=== PATIENT | male | born 1960 | race Caucasian/White ===

== ENCOUNTER 2021-12-14 14:33 | Inpatient (IN) | payer SELFPAY ==
[2021-12-14 15:19] LABS: #Monocytes 0.6 10x3/uL (0.0-1.1); %Basophils 0.3 % (0.0-2.0); %Eosinophils 0.5 % (0.0-6.0); %Lymphocytes 22.3 % (18.0-47.0); %Monocytes 9.4 % (0.0-10.0); %Neutrophils 67.2 % (40.0-75.0); Mean Corpuscular HGB CONC 32.6 g/dL (32.0-36.0); Mean Corpuscular Hemoglobin 27.5 pg (27.0-33.0); Mean Corpuscular Volume 84.2 fl (81.2-95.1); Mean Platelet Volume 10.2 fl (7.4-10.4); Platelet Count 196 10x3/uL (150-450); RBC Distribution Width 14.8 % (11.5-14.5); Red Blood Cell (RBC) Count 4.37 10x6/uL (4.32-5.72); White Blood Cell (WBC) Count 5.9 10x3/uL (3.5-10.5)
[2021-12-14 15:28] LABS: ALT (SGPT) 28 U/L (8-55); AST (SGOT) 19 U/L (5-34); Albumin 4.4 g/dL (3.5-5.0); Alkaline Phosphatase 64 U/L (40-110); Anion Gap 17 mmol/L (10-20); BUN (Urea Nitrogen) 22 mg/dL (8.4-25.7); Bilirubin, Total 0.8 mg/dL (0.2-1.2); Calc. Creatinine Clearance 0 mL/min (70-130); Calcium 9.3 mg/dL (7.8-10.44); Carbon Dioxide 20 mmol/L (22-29); Chloride 104 mmol/L (98-107); Estimated GFR 58; Glucose 373 mg/dL (70-105); Magnesium 1.6 mg/dL (1.6-2.6); Potassium 4.6 mmol/L (3.5-5.1); Protein, Total 7.4 g/dL (6.0-8.3); Sodium 136 mmol/L (136-145)
[2021-12-14] MEDS ORDERED: Nitroglycerin 0.4 MG TAB 1 EACH ONE (16:00)
[2021-12-14] MEDS ORDERED: Furosemide 100 MG/10 ML VIAL ONE (16:01)
[2021-12-14] MEDS ORDERED: Nitroglycerin 2% Ointment 1 INCH/1 GM Packet ONE (16:01)
[2021-12-14] MEDS ORDERED: Acetaminophen 650 MG Suppository PR PRN (16:41)
[2021-12-14] MEDS ORDERED: Ondansetron PF 4 MG/2 ML Vial IVP PRN (16:41)
[2021-12-14] MEDS ORDERED: Ondansetron ODT 4 MG TAB PO PRN (16:41)
[2021-12-14] MEDS ORDERED: Bisacodyl 5 MG TAB PO PRN (16:41)
[2021-12-14] MEDS ORDERED: Acetaminophen 325 MG TAB PO PRN (16:41)
[2021-12-14] MEDS ORDERED: Senokot S 8.6-50 MG TAB PO PRN (16:41)
[2021-12-14] MEDS ORDERED: Insulin Regular 300 UNITS/3 ML VIAL SC PRN ×2 (16:46)
[2021-12-14] MEDS ORDERED: Dextrose 50% Abboject 50 ML SYRINGE SLOW IVP PRN (16:46)
[2021-12-14] MEDS ORDERED: Dextrose 5% in Water 1,000 ML IV PRN (16:46)
[2021-12-14 16:48] LABS: SARS-CoV-2 NAA Rapid Test Not Detected (NotDetected)
[2021-12-14] MEDS ORDERED: Magnesium 2 GM/50 ML(in water) 2 GM in Premix Bag 1 BAG IVPB SCH (17:30)
[2021-12-14 18:25] VITALS: BMI 27.8
[2021-12-14] MEDS ORDERED: Prevnar 13-Val Conj/PF 0.5 ML SYRINGE IM ONE (18:45)
[2021-12-14] MEDS: Atorvastatin Calcium 40 MG TAB PO SCH (21:04)
[2021-12-15 04:55] LABS: #Eosinphils 0.1 10x3/uL (0.0-0.5); #Monocytes 0.7 10x3/uL (0.0-1.1); #Neutrophils 3.9 10x3/uL (1.5-8.4); %Basophils 0.5 % (0.0-2.0); %Eosinophils 1.2 % (0.0-6.0); %Lymphocytes 27.6 % (18.0-47.0); %Monocytes 10.1 % (0.0-10.0); %Neutrophils 60.4 % (40.0-75.0); Hemoglobin 11.8 g/dL (13.5-17.5); Mean Corpuscular HGB CONC 33.1 g/dL (32.0-36.0); Mean Corpuscular Hemoglobin 27.6 pg (27.0-33.0); Mean Corpuscular Volume 83.2 fl (81.2-95.1); Mean Platelet Volume 10.1 fl (7.4-10.4); Platelet Count 182 10x3/uL (150-450); RBC Distribution Width 14.9 % (11.5-14.5); Red Blood Cell (RBC) Count 4.28 10x6/uL (4.32-5.72); White Blood Cell (WBC) Count 6.5 10x3/uL (3.5-10.5)
[2021-12-15 05:07] LABS: Anion Gap 15 mmol/L (10-20); BUN (Urea Nitrogen) 24 mg/dL (8.4-25.7); Calc. Creatinine Clearance 85 mL/min (70-130); Calcium 9.3 mg/dL (7.8-10.44); Carbon Dioxide 24 mmol/L (22-29); Chloride 104 mmol/L (98-107); Estimated GFR 70; Glucose 194 mg/dL (70-105); Magnesium 1.9 mg/dL (1.6-2.6); Sodium 139 mmol/L (136-145)
[2021-12-15] MEDS ORDERED: Furosemide 40 MG/4 ML VIAL SLOW IVP SCH (06:00)
[2021-12-15] MEDS ORDERED: Furosemide 100 MG/10 ML VIAL SLOW IVP SCH (06:00)
[2021-12-15] MEDS ORDERED: Carvedilol 3.125 MG TAB PO SCH (09:15)
[2021-12-15] MEDS ORDERED: Lisinopril 2.5 MG TAB PO SCH (10:00)
[2021-12-15] MEDS: Clopidogrel Bisulfate 75 MG TAB PO SCH (10:21)
[2021-12-15] MEDS: metFORMIN 500 MG TAB PO SCH ×2 (10:21→18:15)
[2021-12-15] MEDS: Ubidecarenone 50 MG CAP PO SCH (10:21)
[2021-12-15] MEDS: Aspirin Chewable 81 MG TAB PO SCH (10:21)
[2021-12-15] MEDS: Diclofenac 1% 100 GM GEL TP SCH ×3 (14:57→21:38)
[2021-12-15] MEDS: Carvedilol 3.125 MG TAB PO SCH (18:15)
[2021-12-15] MEDS: Atorvastatin Calcium 40 MG TAB PO SCH (21:38)
[2021-12-16 05:28] LABS: #Eosinphils 0.1 10x3/uL (0.0-0.5); #Monocytes 0.5 10x3/uL (0.0-1.1); %Basophils 0.2 % (0.0-2.0); %Eosinophils 2.2 % (0.0-6.0); %Lymphocytes 27.2 % (18.0-47.0); %Monocytes 10.1 % (0.0-10.0); %Neutrophils 59.9 % (40.0-75.0); Hemoglobin 11.7 g/dL (13.5-17.5); Mean Corpuscular HGB CONC 32.2 g/dL (32.0-36.0); Mean Corpuscular Hemoglobin 27.3 pg (27.0-33.0); Mean Corpuscular Volume 84.8 fl (81.2-95.1); Mean Platelet Volume 10.1 fl (7.4-10.4); Platelet Count 196 10x3/uL (150-450); RBC Distribution Width 14.9 % (11.5-14.5); Red Blood Cell (RBC) Count 4.28 10x6/uL (4.32-5.72); White Blood Cell (WBC) Count 5.1 10x3/uL (3.5-10.5)
[2021-12-16 05:44] LABS: Anion Gap 15 mmol/L (10-20); BUN (Urea Nitrogen) 23 mg/dL (8.4-25.7); Calc. Creatinine Clearance 97 mL/min (70-130); Calcium 9.5 mg/dL (7.8-10.44); Carbon Dioxide 24 mmol/L (22-29); Chloride 104 mmol/L (98-107); Estimated GFR 78; Glucose 179 mg/dL (70-105); Potassium 4.1 mmol/L (3.5-5.1); Sodium 139 mmol/L (136-145)
[2021-12-16] MEDS: Diclofenac 1% 100 GM GEL TP SCH (06:42)
[2021-12-16] MEDS ORDERED: Furosemide 40 MG TAB PO SCH (07:30)
[2021-12-16] MEDS ORDERED: Lisinopril 2.5 MG TAB PO SCH (09:00)
[2021-12-16] MEDS: Carvedilol 3.125 MG TAB PO SCH (09:40)
[2021-12-16] MEDS: Aspirin Chewable 81 MG TAB PO SCH (09:40)
[2021-12-16] MEDS: Clopidogrel Bisulfate 75 MG TAB PO SCH (09:40)
[2021-12-16] MEDS: Ubidecarenone 50 MG CAP PO SCH (09:40)
[2021-12-16] MEDS: metFORMIN 500 MG TAB PO SCH (09:40)
[2021-12-16 12:25] VITALS: BP 126/78; TEMP 97
== END 2021-12-16 12:58 | disposition home or self-care (01) | DRG 291 ==
LOC: CSHERS 14:33 → CSHTELE 17:47
PROVIDERS: ADMIT Family Medicine; ATTEND Internal Medicine
DX: I11.0 Hypertensive heart disease with heart failure (principal); I50.23 Acute on chronic systolic (congestive) heart failure; N17.9 Acute kidney failure, unspecified; I25.10 Atherosclerotic heart disease of native coronary artery without angina pectoris; E78.5 Hyperlipidemia, unspecified; E11.9 Type 2 diabetes mellitus without complications; E83.42 Hypomagnesemia; Z20.822 Contact with and (suspected) exposure to COVID-19; Z79.82 Long term (current) use of aspirin; Z79.899 Other long term (current) drug therapy; Z79.84 Long term (current) use of oral hypoglycemic drugs; Z87.891 Personal history of nicotine dependence; Z95.1 Presence of aortocoronary bypass graft
CPT/HCPCS: 36415; 36416; 71045; 80048; 80053; 83735; 83880; 84443; 84484; 85025; 93005; 93306; 94760; 96374; J1940; J3475